=== PATIENT | male | born 1980 | race Caucasian/White ===

== ENCOUNTER 2018-05-29 08:42 | Emergency (ER) | payer MEDICAID ==
[~2018-05-29] VITALS: Ht 172.7 cm; Wt 79.4 kg
[~2018-05-29 08:42] MED LIST: IBUPROFEN 800800 M1 PO
[2018-05-29] MEDS ORDERED: [UNRECOGNIZED DRUG - REMARK] PO (08:53)
[2018-05-29 09:25] LABS: ABSOLUTE BASOPHILS 0.1 thou/uL (0.0-0.2); ABSOLUTE MONOCYTES 0.6 thou/uL (0.0-1.2); BASOPHILS 0.9 %; HEMATOCRIT 41.8 % (42.0-52.0); HEMOGLOBIN 14.6 gm/dL (14.0-18.0); MCH 31.8 pg (26.0-34.0); MCHC 34.8 g/dL (28.0-37.0); MCV 91.5 fL (80.0-100.0); MONOCYTES 7.7 %; MPV 8.2 fl. (7.2-11.1); NUCLEATED RBCS 0 /100WBC; PLATELET COUNT* 309 thou/uL (150-400); POLYS 78.4 %; RBC 4.57 mil/uL (4.50-6.00); RDW-CV 13.1 % (10.5-14.5); WBC 7.7 thou/uL (4.0-11.0)
[2018-05-29 09:32] LABS: ANION GAP 15 mmol/L (7-16); BUN 17 mg/dL (7-18); CALCIUM 8.3 mg/dL (8.5-10.1); CHLORIDE 102 mmol/L (98-107); CO2 20 mmol/L (21-32); CREATININE 1.4 mg/dL (0.6-1.3); GLUCOSE 85 mg/dL (70-99); POTASSIUM 3.3 mmol/L (3.5-5.1); SODIUM 137 mmol/L (136-145)
[2018-05-29 09:33] LABS: PROTIME 10.1 Seconds (9.20-11.50)
[2018-05-29 09:43] LABS: ALKALINE PHOSPHATASE 90 U/L (46-116); LIPASE 97 U/L (73-393); NT-PRO BRAIN NAT PEPTIDE 213 pg/mL (<300); SGOT 70 U/L (15-37); SGPT 100 U/L (30-65); TOTAL BILIRUBIN 1.1 mg/dL (<0.1-1.0); TOTAL PROTEIN 7.6 g/dL (6.4-8.2); TROPONIN-I LEVEL <0.06 ng/mL (<0.06)
[2018-05-29 09:51] LABS: SALICYLATE < 2.8 mg/dL (2.8-20.0)
[2018-05-29 09:52] LABS: URINE BILIRUBIN NEGATIVE (Negative); URINE BLOOD NEGATIVE (Negative); URINE CLARITY CLEAR; URINE COLOR YELLOW; URINE GLUCOSE-RANDOM NEGATIVE (Negative); URINE KETONES NEGATIVE (Negative); URINE LEUKOCYTES-REFLEX NEGATIVE (Negative); URINE NITRITE-REFLEX NEGATIVE (Negative); URINE PROTEIN NEGATIVE (Negative); URINE UROBILINOGEN 0.2 E.U./dl (0.2-1.0)
[2018-05-29 09:53] LABS: ACETAMINOPHEN < 2 ug/mL (10-30)
[2018-05-29 10:07] LABS: AMP/METHAMP POSITIVE (Negative); BARBITURATES Negative (Negative); BENZODIAZEPINES Negative (Negative); COCAINE Negative (Negative); METHADONE Negative (Negative); OPIATES Negative (Negative); PCP Negative (Negative); THC POSITIVE (Negative)
[2018-05-29 10:27] LABS: ALCOHOL 56 mg/dL (<10)
[2018-05-29] MEDS ORDERED: AUGMENTIN 875-1 EACH PO (11:10)
[2018-05-29 11:52] VITALS: BP 147/83
--- NOTE | 2018-05-30 10:22 | EKG ---
[place] [address] ELECTROCARDIOGRAM REPORT Name: TAMEKA BECERRILLE YOSELIN [facility] [id number] Admission: 05/29/18 Attend Phys: Discharge: 05/29/18 Date of : 80 Report #: [id number] THIS REPORT FOR: //name// [facility] ED Test Date: 2018-05-29 Test Time: 08:47:25 Pat Name: BELKIS BECERRIL Department: Room: Gender: M Manager Terminal: JESÚS BELTRAN : 1980 Requested By: Ld Shoemaker Order Number: [id number] MD: Sree Ivy Measurements Intervals [place] Rate: 116 P: 69 SC: 149 QRS: 61 QRSD: 94 T: 29 QT: 323 QTc: 449 Interpretive Statements Sinus tachycardia Right atrial enlargement Abnormal R-wave progression, early transition Borderline repolarization abnormality No previous ECG available for comparison Electronically Signed On 05-30-2018 10:22:28 CDT by Sree Ivy [email or web address] <ELECTRONICALLY SIGNED> By: Sree Ivy MD, [facility] 05/30/18 1022 0847 Sree Iyv MD, FACC /EPI
== END 2018-05-29 11:54 ==
LOC: M.ERS 08:42
PROVIDERS: Family Medicine
DX: S00.411A Abrasion of right ear, initial encounter (principal); R50.9 Fever, unspecified; F10.129 Alcohol abuse with intoxication, unspecified; Y90.2 Blood alcohol level of 40-59 mg/100 ml; F19.10 Other psychoactive substance abuse, uncomplicated; I10 Essential (primary) hypertension; Z79.899 Other long term (current) drug therapy; W18.39XA Other fall on same level, initial encounter; Y93.89 Activity, other specified; Y92.89 Other specified places as the place of occurrence of the external cause; Y99.8 Other external cause status